=== PATIENT | male | born 1945 | race Hispanic/Latino ===

== ENCOUNTER 2016-12-21 10:37 | Emergency (ER) | payer MEDICARE ==
[2016-12-21 10:59] VITALS: BP 152/66
== END 2016-12-21 18:20 | disposition left against medical advice (07) ==
LOC: ED 10:37
DX: M79.671 Pain in right foot (principal); Z53.21 Procedure and treatment not carried out due to patient leaving prior to being seen by health care provider

== ENCOUNTER 2016-12-23 10:35 | Outpatient (CLI) | payer MEDICARE ==
--- NOTE | 2016-12-23 11:35 | XRay Report ---
RIGHT FOOT, 3 VIEWS History: Injury. Findings: There is soft tissue swelling on the dorsum of the foot. Bone mineralization is borderline. There is no evidence for fracture, malalignment or bone lesion. No erosive joint pathology. 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 Impression: Soft tissue swelling. Chronic bony findings as described.
== END 2016-12-23 10:36 | disposition home or self-care (01) ==
LOC: XRAY 10:35
PROVIDERS: ATTEND Internal Medicine
DX: S99.921A Unspecified injury of right foot, initial encounter (principal); M19.071 Primary osteoarthritis, right ankle and foot; J44.9 Chronic obstructive pulmonary disease, unspecified; F17.200 Nicotine dependence, unspecified, uncomplicated; X58.XXXA Exposure to other specified factors, initial encounter; Y93.89 Activity, other specified; Y92.89 Other specified places as the place of occurrence of the external cause; Y99.8 Other external cause status

== ENCOUNTER 2017-01-07 12:53 | Outpatient (CLI) | payer MEDICARE ==
--- NOTE | 2017-01-07 15:01 | Mammography Report ---
BONE DEXA:01/07/17 12:53:00 CLINICAL: 71-year-old male with prostate cancer. No comparison. TECHNIQUE: Two site bone DEXA performed on an Hologic scanner. FINDINGS: The average BMD of the lumbar spine L1-L4 is 1.051g/cm squared with a T-score of -0.4 and a Z-score of +0.6. The average BMD of the left hip is 1.053g/cm squared with a T-score of +0.1 and a Z-score of +0.9. IMPRESSION: WHO classification: Normal with average fracture risk based on both spine and left hip measurements. RECOMMENDATION: Clinical correlation and routine screening. DEFINITIONS: BMD = Bone Mineral Density T-score = BMD related to mean peak bone mass of young adult (mean expressed in Standard Deviation) Z-score = Age matched BMD expressed in SD World Health Organization (WHO) Diagnostic Criteria Normal T-score > -1 SD Osteopenia T-score between -1 and -2.4 SD Osteoporosis T-score -2.5 SD or below NOTE: BMD is not the only risk factor for fracture. One should also consider factors such as the patient's age, risk of falling, previous osteoporotic fracture, family history of osteoporotic fractures, current smoker, and low body weight. Z-scores are not calculated if >80 years of age.
== END 2017-01-07 12:54 | disposition home or self-care (01) ==
LOC: MAMMO 12:53
PROVIDERS: ATTEND Urology
DX: Z13.820 Encounter for screening for osteoporosis (principal); C61 Malignant neoplasm of prostate; I50.9 Heart failure, unspecified; J44.9 Chronic obstructive pulmonary disease, unspecified; F17.200 Nicotine dependence, unspecified, uncomplicated
CPT/HCPCS: 77080

== ENCOUNTER 2017-08-27 07:24 | Outpatient (CLI) | payer MEDICARE ==
--- NOTE | 2017-08-28 08:29 | PET Report ---
PET/CT:08/27/17 07:24:00 CLINICAL: Right lung mass. RADIOPHARMACEUTICAL: 14.0mCi F18-FDG. COMPARISON: 08/10/17 CT CAP TECHNIQUE- Following intravenous injection of F-18 FDG and an approximately 60 minute uptake period, CT and PET images from the mid skull to the upper thighs were acquired with the patient in the fasted state. No contrast was administered. The CT protocol used for this PET CT study is designed for attenuation correction and anatomic localization of PET abnormalities. This poultry picker CT is not desired to produce and cannot replace, [id number] diagnostic CT scans with specific imaging protocols for different body parts and indications. Plasma glucose at the time of this test: 120g/dl. The standardized uptake values (SUV) are normalized to patient body weight and indicate the highest activity concentration (SUV max) in a given disease site. FINDINGS: Brain--Physiologic FDG uptake in the visualized regions of the brain. Neck--Physiologic FDG uptake in mucosal structures. No mass or lymphadenopathy. Chest--Physiologic FDG uptake in mediastinal blood pool and myocardium. Lungs--An FDG avid irregular right lower lobe lung mass measures approximately 11.5 cm AP dimension by 9.5 cm transverse dimension by 9.8 cm craniocaudal dimension. The FDG uptake is at the periphery of the mass with SUV 11.0. Branching calcifications are identified within the mass. A less well-defined wedge-shaped FDG avid mass in the right middle lobe measures approximately 6.3 x 2.6 x 2.2 cm with SUV 6.3. A 1 cm spiculated lesion of the left upper lobe with minimal FDG uptake in SUV 1.3. Pleura/pericardium--No abnormal uptake. A moderately large right pleural effusion. Thoracic nodes--An FDG avid subcarinal lymph node measures 2.7 x 2.4 cm with SUV 9.2. A non-FDG avid retrocaval pretracheal lymph node measures 2.0 x 2.2 cm. No hilar lymphadenopathy. Hepatobiliary--No abnormal uptake. Liver background SUV mean, as a reference for comparing FDG studies, is 2.6 . No liver mass. Spleen--No abnormal uptake. Pancreas--No abnormal uptake. Adrenal Glands--No abnormal uptake. Kidneys/Ureters/Bladder--No abnormal uptake. Abdominopelvic Nodes--No abnormal uptake. Bowel/Peritoneum/Mesentery--Probably benign uptake in the right colon and sigmoid colon. Pelvic organs--No abnormal uptake. Bones/Soft Tissues--No abnormal uptake and no suspicious bone lesions. IMPRESSION- 1. 11.5 cm right lower lobe bronchogenic carcinoma and a 6.3 cm right middle lobe bronchogenic carcinoma.2. Mediastinal katherine metastasis. 3. A suspicious 1 cm spiculated left upper lobe lung mass with mild FDG uptake. 4. No evidence of adrenal, hepatic or skeletal metastasis.
== END 2017-08-27 07:25 | disposition home or self-care (01) ==
LOC: PET 07:24
PROVIDERS: ATTEND Internal Medicine Hematology & Oncology
DX: C78.1 Secondary malignant neoplasm of mediastinum (principal); C34.31 Malignant neoplasm of lower lobe, right bronchus or lung; J90 Pleural effusion, not elsewhere classified; I11.0 Hypertensive heart disease with heart failure; I50.9 Heart failure, unspecified; J44.9 Chronic obstructive pulmonary disease, unspecified; Z79.899 Other long term (current) drug therapy
CPT/HCPCS: 78815; 82962; A9552

== ENCOUNTER 2017-08-28 05:53 | Day surgery (SDC) | payer MEDICARE ==
[2017-08-28 07:03] LABS: Basophils # (Auto) 0.1 K/mm3 (0.0-0.1); Eosinophils # (Auto) 0.2 K/mm3 (0.0-0.4); Eosinophils % (Auto) 2.1 % (0.0-4.3); Hematocrit 28.2 % (35.5-45.6); Hemoglobin 9.2 gm/dl (11.8-15.2); Lymphocytes # (Auto) 1.7 K/mm3 (1.2-5.4); Lymphocytes % (Auto) 18.5 % (13.4-35.0); Mean Corpuscular HGB Conc 33 % (32-34); Mean Corpuscular Hemoglobin 25 pg (28-32); Mean Corpuscular Volume 77 fl (84-94); Monocytes # (Auto) 0.8 K/mm3 (0.0-0.8); Monocytes % (Auto) 8.1 % (0.0-7.3); Platelet Count 300 K/mm3 (140-440); Red Blood Count 3.65 M/mm3 (3.65-5.03); Red Cell Distribution Width 20.1 % (13.2-15.2)
[2017-08-28 07:14] LABS: INR 1.17 (0.87-1.13)
[2017-08-28 07:15] LABS: Partial Thromboplastin Time 51.2 Sec. (24.2-36.6)
[2017-08-28] MEDS ORDERED: NACL 0.9% 500 ML 500 ML IV SCH (08:00)
[2017-08-28] MEDS ORDERED: BENADRYL ONE (08:54)
[2017-08-28] MEDS ORDERED: SUBLIMAZE ONE (08:54)
[2017-08-28] MEDS ORDERED: VERSED IV ONE ×2 (08:54→09:30)
--- NOTE | 2017-08-28 10:26 | Cat Scan Report ---
CT BIOPSY LUNG RIGHT History: Right lower lobe lung mass Description of procedure: Informed consent was obtained. Sterile technique was utilized. 1% lidocaine for skin anesthesia. Anxiolysis was accomplished with 1 mg of Versed. Using CT guidance, a 19-gauge introducer needle was advanced to the edge of an ill-defined 9 cm mass within a collapsed right lower lobe. Approximately 7 separate 20-gauge core biopsies were obtained for pathology. The samples were deemed borderline. Many of these samples were necrotic. Please await the formal report by pathology. Impression: Successful CT-guided biopsy of a 9 cm ill-defined necrotic mass in the right lower lobe. See above.
--- NOTE | 2017-08-28 13:56 | XRay Report ---
AP CHEST: HISTORY: Lung mass, lung biopsy Recent CT-guided biopsy of a right lower lobe lung mass was performed. There is no evidence for pneumothorax. There is consolidation throughout the right lower lobe which is unchanged. The left lung is generally clear. Heart size is grossly normal. IMPRESSION: No evidence for pneumothorax.
[2017-08-28 14:30] VITALS: BP 101/45
== END 2017-08-28 13:30 | disposition home or self-care (01) ==
LOC: CATHLABREC 05:53 → EDSTATUS 07:30 → CATHLABREC 13:30
PROVIDERS: ATTEND Internal Medicine Hematology & Oncology
DX: C34.31 Malignant neoplasm of lower lobe, right bronchus or lung (principal); Z79.01 Long term (current) use of anticoagulants
CPT/HCPCS: 32405; 36415; 71045; 77012; 85025; 85610; 85730; 88173; 88305; 88333; 88342; J2250; J7040; 88341; J1200; J3010